=== PATIENT | female | born 1980 | race American Indian/Alaskan Native ===

== ENCOUNTER 2018-05-05 11:47 | Emergency (ER) | payer SELFPAY ==
--- NOTE | 2018-05-05 12:07 | Emergency Department Report ---
Blank Doc - Documentation Documentation: This is a 38-year-old female that presents with chest pain with some SOB. Sta amanda is in midsternum with no radiation. This initial assessment diagnostic orders/clinical plan/treatment(s) is/are subject to change based on patient's health status, clinical progression and re-assessment by fellow clinical providers in the ED. Further treatment and workup at subsequent clinical providers discretion. Patient/guardians urged not to elope from ED s their condition may be serious if not clinically assessed and managed. Initial orders include: 1-patient sent to [facility] for further evaluation and treatment. 2- labs 3- EKG 4- CXR
[2018-05-05 13:19] LABS: Basophils % (Auto) 0.3 % (0.0-1.8); Eosinophils % (Auto) 0.1 % (0.0-4.3); Hematocrit 37.1 % (30.3-42.9); Hemoglobin 12.3 gm/dl (10.1-14.3); Lymphocytes # (Auto) 1.8 K/mm3 (1.2-5.4); Lymphocytes % (Auto) 30.8 % (13.4-35.0); Mean Corpuscular HGB Conc 33 % (30-34); Mean Corpuscular Volume 89 fl (79-97); Monocytes # (Auto) 0.6 K/mm3 (0.0-0.8); Monocytes % (Auto) 9.6 % (0.0-7.3); Platelet Count 439 K/mm3 (140-440); Red Blood Count 4.17 M/mm3 (3.65-5.03); Red Cell Distribution Width 12.1 % (13.2-15.2)
[2018-05-05 13:29] LABS: INR 0.99 (0.87-1.13); Partial Thromboplastin Time 22.5 Sec. (24.2-36.6)
[2018-05-05 13:43] LABS: Alanine Aminotransferase 29 units/L (7-56); Albumin 4.1 g/dL (3.9-5); BUN/Creatinine Ratio 25; Blood Urea Nitrogen 10 mg/dL (7-17); Calcium 9.4 mg/dL (8.4-10.2); Hemolysis Index 1
--- NOTE | 2018-05-05 14:18 | XRay Report ---
ROUTINE CHEST, TWO VIEWS: HISTORY: chest pain. The trachea, heart, mediastinal contour, lung whittaker and bony thorax are unremarkable. IMPRESSION: Unremarkable chest x-ray.
--- NOTE | 2018-05-05 15:01 | Emergency Department Report ---
ED Chest Pain HPI - General Chief Complaint: Chest Pain Stated Complaint: PRESSURE/PAIN IN CHEST Time Seen by Provider: 05/05/18 12:06 Source: patient Mode of arrival: Ambulatory Limitations: No Limitations - History of Present Illness Initial Comments: Patient is a 38-year-old female with no prior medical history presents to ED complaining of chest pain the past 3-4 days. Patient states that she has had chest pain on and off for 3 days. She states she has some shortness of breath with exertion. She denies any trauma, . MD Complaint: chest pain Pain Location: left chest Pain Radiation: none Severity scale (0 -10): 4 Quality: tightness, aching, pressure Consistency: constant Improves With: nothing Worsens With: exertion re: denies: nausea, vomting Treatments Prior to Arrival: none - Related Data Previous Rx's Medication Instructions Recorded Last Taken Type Naproxen [Naprosyn] 500 mg PO BID #30 tab 05/05/18 Unknown Rx Allergies Allergy/AdvReac Type Severity Reaction Status Date / Time No Known Allergies Allergy Unverified 05/05/18 12:16 Heart Score - HEART Score History: Slightly suspicious EKG: Non-specific Age: < 45 Risk factors: No known risk factors Troponin: < normal limit HEART Score: 1 - Critical Actions Critical Actions: 0-3 pts:0.9-1.7%risk of adverse cardiac event.Candidate for discharge ED Review of Systems ROS: Stated complaint: PRESSURE/PAIN IN CHEST Other details as noted in HPI Comment: All other systems reviewed and negative ED Past Medical Hx - Past Medical History Previous Medical History?: No - Surgical History Past Surgical History?: No - Social History Smoking Status: Current Some Day Smoker Substance Use Type: None - Medications Home Medications: Home Medications Medication Instructions Recorded Confirmed Last Taken Type Naproxen [Naprosyn] 500 mg PO BID #30 tab 05/05/18 Unknown Rx ED Physical Exam - General Limitations: No Limitations General appearance: alert, in no apparent distress - Head Head exam: Present: atraumatic, normocephalic - Eye Eye exam: Present: normal appearance - ENT ENT exam: Present: mucous membranes moist - Neck Neck exam: Present: normal inspection, full ROM. Absent: tenderness, lymphadenopathy - Respiratory Respiratory exam: Present: normal lung sounds bilaterally. Absent: respiratory distress, wheezes, rales, chest wall tenderness, accessory muscle use - Cardiovascular Cardiovascular Exam: Present: regular rate, normal rhythm. Absent: systolic murmur, diastolic murmur, rubs, gallop - GI/Abdominal GI/Abdominal exam: Present: soft, normal bowel sounds - Extremities Exam Extremities exam: Present: normal inspection - Back Exam Back exam: Present: normal inspection - Neurological Exam Neurological exam: Present: alert, oriented X3 - Psychiatric Psychiatric exam: Present: normal affect, normal mood - Skin Skin exam: Present: warm, dry, intact, normal color. Absent: rash ED Course Vital Signs 05/05/18 05/05/18 12:13 16:25 Temperature 99.0 F Pulse Rate 103 H 98 H Respiratory 20 18 Rate Blood Pressure 141/79 Blood Pressure 139/82 [Right] O2 Sat by Pulse 99 98 Oximetry KOFI score - Kofi Score Age > 65: (0) No Aspirin use within the Past 7 Days: (0) No 3 or more CAD Risk Factors: (0) No 2 or more Angina events in past 24 hrs: (0) No Known CAD with more than 50% Stenosis: (0) No Elevated Cardiac Markers: (0) No ST Deviation Greater than 0.5mm: (0) No KOFI Score: 0 ED Medical Decision Making - Lab Data Result diagrams: 05/05/18 12:56 05/05/18 12:56 - Radiology Data Radiology results: report reviewed, image reviewed FINDINGS: Contrast bolus is satisfactory. No pulmonary embolus is identified. Thyroid gland: Only the inferior thyroid is visualized. The thyroid gland appears mildly enlarged with multiple small nodules which probably represents a multinodular goiter. Tracheobronchial tree: Normal. Esophagus: Normal. Heart: Normal. Pericardium: Normal. Mediastinum: Aberrant origin of the right subclavian artery is noted. The right subclavian artery passes posterior to the trachea and esophagus. Lung Dalal: Normal. Pleural Spaces: Normal. Musculoskeletal: Normal. IMPRESSION: No evidence for pulmonary embolus. No acute cardiopulmonary process is identified. Probable multinodular goiter. Aberrant origin of the right subclavian artery, congenital variant. Transcribed By: TTR Dictated By: JOSH OLMOS JR, MD Electronically Authenticated By: JOSH OLMOS JR, MD Signed Date/Time: 05/05/18 8272 - Medical Decision Making 38-year-old female presents with atypical chest pain ED course: Labs completed. Chest x-ray negative, basic labs negative D-dimer elevated so CT ordered. CT shows no signs of PE. Discussed all findings with the patient. Discussed the patient will follow up with primary care physician. Discussed patient is symptoms worsen to return to the ED otherwise follow-up. Patient is speaking in clear sentences understands instructions, she is in no respiratory or acute distress. Critical care attestation.: If time is entered above; I have spent that time in minutes in the direct care of this critically ill patient, excluding procedure time. ED Disposition Clinical Impression: Chest pain, Costochondral chest pain Disposition: - TO HOME OR SELFCARE Is pt being admited?: No Does the pt Need Aspirin: No Condition: Stable Instructions: Chest Pain (ED), Costochondritis (ED) Additional Instructions: Make sure to follow up with the primary care physician as discussed. Get your thyroid function checked by your primary care physician Take all your medications as you've been prescribed. If you have any worsening symptoms or develop new symptoms please return to ED immediately. Prescriptions: Naproxen [Naprosyn] 500 mg PO BID #30 tab Referrals: MIGUEL ANGEL SMITH MD [Primary Care Provider] - 3-5 Days JEIMY ADHIKARI MD [Referring] - 3-5 Days [facility] [Provider Group] - 3-5 Days Forms: Accompanied Note, Work/School Release Form(ED) Time of Disposition: 16:04
--- NOTE | 2018-05-05 15:46 | Cat Scan Report ---
CTA CHEST: HISTORY: Shortness of breath, elevated d-dimer. COMPARISON: none. TECHNIQUE: Helical CT in 1.25mm intervals following IV contrast. Pulmonary embolus protocol. Sagittal and coronal reformatted images. Rotational MIP images. FINDINGS: Contrast bolus is satisfactory. No pulmonary embolus is identified. Thyroid gland: Only the inferior thyroid is visualized. The thyroid gland appears mildly enlarged with multiple small nodules which probably represents a multinodular goiter. Tracheobronchial tree: Normal. Esophagus: Normal. Heart: Normal. Pericardium: Normal. Mediastinum: Aberrant origin of the right subclavian artery is noted. The right subclavian artery passes posterior to the trachea and esophagus. Lung Dalal: Normal. Pleural Spaces: Normal. Musculoskeletal: Normal. IMPRESSION: No evidence for pulmonary embolus. No acute cardiopulmonary process is identified. Probable multinodular goiter. Aberrant origin of the right subclavian artery, congenital variant.
[2018-05-05 16:26] VITALS: BP 139/82
== END 2018-05-05 16:26 | disposition home or self-care (01) ==
LOC: ED 11:47
DX: M94.0 Chondrocostal junction syndrome [Tietze] (principal); F17.200 Nicotine dependence, unspecified, uncomplicated
CPT/HCPCS: 36415; 71046; 71275; 80053; 84484; 84703; 85025; 85379; 85610; 85730; 93005; 93010; 99285; Q9967